=== PATIENT | male | born 1955 | race Caucasian/White ===

== ENCOUNTER 2018-09-27 06:56 | Day surgery (SDC) | payer BC ==
[~2018-09-27 06:56] MED LIST: CEFAZOLIN 1 Gram 1 GM/50 ML BAG IVPB ONE; CEFAZOLIN 2 Gram 2 GM/50 ML BAG IVPB ONE
[2018-09-27] MEDS ORDERED: ONDANSETRON HCL IV 4 MG/2 ML VIAL IVP ONE (06:57)
[2018-09-27] MEDS ORDERED: BUPIVACAINE LIPOSOME/PF 133MG/10ML VIAL IV ONE (06:57)
[2018-09-27] MEDS ORDERED: DEXAMETHASONE 4 MG/ML 1ML VIAL IVP ONE (06:57)
[2018-09-27] MEDS ORDERED: KETOROLAC 30 MG/ML VIAL IVP ONE (06:57)
[2018-09-27] MEDS ORDERED: SEVOFLURANE 250 ML INH ONE (06:57)
[2018-09-27] MEDS ORDERED: MIDAZOLAM HCL 2MG/2ML VIAL IV ONE (06:57)
[2018-09-27] MEDS ORDERED: MORPHINE SULFATE PF 10MG/10ML *10ML VIAL IV ONE (06:57)
[2018-09-27] MEDS ORDERED: LIDOCAINE 2% MDV (20MG/ML) 20ML VIAL IV ONE (06:57)
[2018-09-27] MEDS ORDERED: BUPIVACAINE 0.25% MPF 30ML VIAL IVP ONE (06:57)
[2018-09-27 07:16] LABS: ABSOLUTE NEUTROPHIL COUNT 2.82; BASO % 1.1 % (0-6); EOS % 7.4 % (0-6); GRAN % 43.1 % (47-80); HEMATOCRIT 45.8 % (42.0-52.0); HEMOGLOBIN 15.1 gm/dl (14.0-18.0); LYMPH % 40.1 % (16-45); MEAN CELL VOLUME 95.6 fl (81-97); MEAN CORPUSCULAR HEMOGLOBIN 31.5 pg (27-33); MONO % 8.3 % (0-9); PLATELET COUNT 226 K/uL (130-400); RED BLOOD COUNT 4.79 M/uL (4.40-5.70); RED CELL DISTRIBUTION WIDTH 13.9 % (11.5-14.5); WHITE BLOOD COUNT W/O DIFF 6.5 K/uL (4.2-12.2)
[2018-09-27 07:26] LABS: BLOOD UREA NITROGEN 14 mg/dL (8-23); CREATININE 1.1 mg/dL (0.7-1.2); EST GLOMERULAR FILTRATION RATE > 60 mL/min; GLUCOSE,RANDOM 146 mg/dL (74-109)
[2018-09-27] MEDS ORDERED: RINGERS SOLUTION,LACTATED 1,000 ML IV ONE ×2 (07:33→10:56)
[2018-09-27] MEDS ORDERED: BUPIVACAINE 0.5% W/EPI MPF 30 ML VIAL SQ ONE (09:47)
--- NOTE | 2018-09-27 16:10 | Operative Note ---
DATE OF SURGERY: 09/27/2018 PREOPERATIVE DIAGNOSIS: Tear of the rotator cuff on the right. POSTOPERATIVE DIAGNOSES: 1. 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 2. Complex glenohumeral labral tear anteriorly. 3. Advanced arthrosis of the distal clavicle. 4. Profound external impingement right shoulder. OPERATION: 1. Repair of a chronically torn right rotator cuff tear open. 2. Right shoulder arthroscopy with interarticular debridement. 3. Right shoulder open acromioplasty, CA ligament resection, subacromial bursectomy. 4. Right shoulder distal clavicle resection. STAFF SURGEON: Mark Ghotra MD ANESTHESIA: General. PREPARATION: Chloraprep. INDIVIDUAL CONSIDERATIONS: None. PROCEDURE: The patient was taken to the operating room, placed supine on the operating room table. He had a successful induction of a general anesthetic. He was then placed in a semi-seated beach chair position. His right arm and shoulder were prepped and draped in the usual fashion. Examination under anesthesia showed no instability and good motion. The patient had a posterior portal identified for arthroscopy. Skin was infiltrated with 0.5% Marcaine with epinephrine prior. An 18-gauge spinal needle was easily placed in the joint, and the joint was inflated with normal saline. A stab wound was made, and a blunt-tipped trocar for the scope was placed in the joint. The joint was irrigated out. The patient had an obvious large tear of the rotator cuff, fraying of the labrum anteriorly, and intact long head. Some moderate synovitis. The frayed labrum was debrided of unstable ends. The rotator cuff was debrided. Glenohumeral joint looked good. Some of the synovitis superiorly and anteriorly was debrided. Subscap tendon was normal. After irrigation, portals were closed with [place]. The patient had an anterior approach to the subacromial space and distal clavicle. Skin was again infiltrated with 0.5% Marcaine with epinephrine prior. Sharp dissection carried down through skin and subcutaneous tissues. Small veins were coagulated with a Bovie. An anterior deltoid interval was developed. Care was taken not to split the deltoid more than 4 cm distal to the anterior tip of the acromion to prevent injury to the axillary nerve. Once in the subacromial space, there was a large kerr of fluid consistent with a tear. The deltoid was then taken subperiosteally off the anterior aspect of the acromion, over the top of the intact CA ligament, and off the anterior aspect of a highly degenerated distal clavicle. CA ligament was resected with a Bovie. Distal clavicle was resected with an oscillating saw taking about 6-7 mm. An anterior acromioplasty was performed taking mostly anterior spur tapering towards posteromedially to include the spurs at the AC joint. The undersurface was smoothed with a rasp. A very thick bursa was debrided out. I now had a good look at the tendon and the cuff. Subscap was okay. I would say most of the supraspinatus was okay but infraspinatus and teres minor were completely torn off and retracted. I was able to mobilize them and get I would say most of the teres minor and I would say the posterior half of the supraspinatus back to tendon that remained. The most anterior portion of the infraspinatus, we were able to bring it down into bone. The areas where it was tendon to tendon, I debrided it to good bleeding tendon and placed retention sutures and multiple interrupted [id number] sutures to affect a repair. The most anterior portion, I made a nadia and made a small trough for the bone and put a retention suture and brought that into the bone and put the knot down distally. I would say I was able to restore maybe 70% of what was torn but there was a gap between infraspinatus and portions of teres minor that I just could not repair. After irrigation, I placed the shoulder through a full range of motion to ensure no further impingement. The deltoid was then reattached to the remaining acromion with multiple interrupted #2 Vicryl going directly through the bony acromion. The periosteal cuff of the distal clavicle was closed with running #2 Vicryl. Anterior deltoid interval was closed with running #1 Vicryl. Subcu was closed with 2-0 plus Vicryl and skin was closed with [place]. An 18-gauge spinal needle was placed into the subacromial space. The space was injected with about 15-20 mL of 0.5% Marcaine with epinephrine along with 10 mg of morphine. A sterile bulky compressive dressing and sling were applied. The patient tolerated the procedure well. Needle and sponge counts were correct. Estimated blood loss was minimal. He was taken back to recovery in good condition. There were no complications. SALTY
== END 2018-09-27 12:14 | disposition home or self-care (01) ==
LOC: SUR 06:56
PROVIDERS: ATTEND Orthopaedic Surgery
DX: M75.101 Unspecified rotator cuff tear or rupture of right shoulder, not specified as traumatic (principal); S43.431A Superior glenoid labrum lesion of right shoulder, initial encounter; M19.011 Primary osteoarthritis, right shoulder; M75.41 Impingement syndrome of right shoulder; I10 Essential (primary) hypertension; E78.00 Pure hypercholesterolemia, unspecified; E11.9 Type 2 diabetes mellitus without complications; I25.10 Atherosclerotic heart disease of native coronary artery without angina pectoris; M48.00 Spinal stenosis, site unspecified
CPT/HCPCS: 36416; 76942; 80048; 82948; 85025; C9290; J1885; J2405; J7120

== ENCOUNTER 2019-01-10 08:56 | Day surgery (SDC) | payer OTHER ==
[2019-01-10] MEDS ORDERED: BUPIVACAINE 0.25% MPF 30ML VIAL IVP ONE (08:57)
[2019-01-10] MEDS ORDERED: GLYCOPYRROLATE 0.2 MG/ML ML IV ONE (08:57)
[2019-01-10] MEDS ORDERED: PROPOFOL 10 MG/ML VIAL IV ONE (08:57)
[2019-01-10] MEDS ORDERED: MIDAZOLAM HCL 2MG/2ML VIAL IV ONE (08:57)
[2019-01-10] MEDS ORDERED: BUPIVACAINE LIPOSOME/PF 133MG/10ML VIAL IV ONE (08:57)
[2019-01-10] MEDS ORDERED: LIDOCAINE 2% MDV (20MG/ML) 20ML VIAL IV ONE (08:57)
[2019-01-10 09:26] LABS: ABSOLUTE NEUTROPHIL COUNT 2.31; BASO % 1.1 % (0-6); HEMOGLOBIN 14.8 gm/dl (14.0-18.0); LYMPH % 39.6 % (16-45); MEAN CELL VOLUME 93.9 fl (81-97); MEAN CORPUSCULAR HEMOGLOBIN 30.9 pg (27-33); MEAN CORPUSCULAR HGB CONC 32.9 g/dl (32-36); MEAN PLATELET VOLUME 9.8 fl (7.4-10.4); MONO % 10.3 % (0-9); PLATELET COUNT 219 K/uL (130-400); RED BLOOD COUNT 4.79 M/uL (4.40-5.70); RED CELL DISTRIBUTION WIDTH 13.4 % (11.5-14.5); WHITE BLOOD COUNT W/O DIFF 5.6 K/uL (4.2-12.2)
[2019-01-10] MEDS ORDERED: ACETAMINOPHEN 1,000 MG/100 ML BTL IVPB ONE (09:30)
[2019-01-10 09:41] LABS: BLOOD UREA NITROGEN 13 mg/dL (8-23); EST GLOMERULAR FILTRATION RATE > 60 mL/min; GLUCOSE,RANDOM 154 mg/dL (74-109)
[2019-01-10] MEDS ORDERED: RINGERS SOLUTION,LACTATED 1,000 ML IV ONE (09:55)
[2019-01-10] MEDS ORDERED: METHYLPREDNISOLONE 40MG/VIAL IU ONE (11:28)
[2019-01-10] MEDS ORDERED: MORPHINE SULFATE 10MG/1ML **1ML VIAL IU ONE (11:28)
[2019-01-10] MEDS ORDERED: BUPIVACAINE 0.5% W/EPI MPF 30 ML VIAL SQ ONE (11:28)
--- NOTE | 2019-01-12 08:01 | Operative Note ---
DATE OF SURGERY: 01/10/2019 PREOPERATIVE DIAGNOSIS: Tear of the rotator cuff on the right. POSTOPERATIVE DIAGNOSES: 1. Diffuse synovitis of the right shoulder. 2. Massive unrepairable tear of the rotator cuff. OPERATION: 1. Right shoulder arthroscopy with synovectomy. 2. Right shoulder open bursectomy and rotator cuff debridement. STAFF SURGEON: Mark Ghotra MD ANESTHESIA: Block with sedation. PREPARATION: Chloraprep. INDIVIDUAL CONSIDERATIONS: None. PROCEDURE: The patient was taken to the operating room, placed supine on the operating room table. He had a successful induction of a scalene block and then placed in a semi-seated beach chair position and given IV sedation. His right arm was prepped and draped in the usual fashion. The patient had posterior portal identified for arthroscopy. Skin was infiltrated with 0.5% Marcaine with epinephrine prior. An 18-gauge spinal needle was placed in the joint, and the joint was inflated with normal saline with a 50-mL syringe. A stab wound was made, and a blunt-tipped trocar for the scope was placed in the joint. The joint was inflated with normal saline. An anterior accessory portal was made just inferior to the intact long head of the biceps tendon. There was diffuse synovitis, and this was debrided with a shaver. The patient had an obvious massive tear involving the supraspinatus and all of the infraspinatus. The teres minor appeared posteriorly intact. There was grade 3 change in the glenoid and the humeral head, and the labrum was intact and the subscap tendon was intact. Shaver was introduced. Synovectomy was performed. After irrigation, portals were closed with [place]. The patient had an anterior approach to the subacromial space. Previous incision was used. Skin was again infiltrated with 0.5% Marcaine with epinephrine prior. Sharp dissection carried down through skin and subcutaneous tissues. Small veins were coagulated with a Bovie. An anterior deltoid interval was developed. I used the previous interval. It was then split, taken to the acromion and distally about 4 to 4.5 cm to prevent injury to the axillary nerve. Once in the subacromial space, there was a large kerr of fluid. There were stitches present from previous repair that I had to debride out. Basically, the subscap was okay. I would say the anterior third of the supraspinatus was still intact and part of that repair was intact but the remaining supraspinatus and infraspinatus was basically gone and there were shreds left, which I just debrided out. There was absolutely nothing I could possibly repair. Teres minor was otherwise intact. I irrigated this out and then went ahead and closed the anterior deltoid interval with a running #1 Vicryl. Subcu was closed with 2-0 plus Vicryl and skin was closed with [place]. An 18-gauge spinal needle was placed into the subacromial space. It was injected with 40 mg of Depo-Medrol, 10 mL of 0.5% Marcaine with epinephrine, and 10 mg of morphine. A sterile bulky compressive dressing and sling were applied. The patient tolerated the procedure well. Needle and sponge counts were correct. Estimated blood loss was minimal. He was taken back to recovery in good condition. There were no complications. SALTY
== END 2019-01-10 12:45 | disposition home or self-care (01) ==
LOC: SUR 08:56
PROVIDERS: ATTEND Orthopaedic Surgery
DX: M75.121 Complete rotator cuff tear or rupture of right shoulder, not specified as traumatic (principal); M65.811 Other synovitis and tenosynovitis, right shoulder; I10 Essential (primary) hypertension; E78.00 Pure hypercholesterolemia, unspecified; E11.9 Type 2 diabetes mellitus without complications; Q61.3 Polycystic kidney, unspecified
CPT/HCPCS: 29820; 23107; 01630; 64418; 85025; 80048; J0690 ×2; C9290; J2270; 76942; J1030; J7120